=== PATIENT | female | born 1990 | race Caucasian/White ===

== ENCOUNTER 2018-12-03 09:37 | Inpatient (IN) ==
[2018-12-03] MEDS ORDERED: Naloxone 0.4 MG/ML INJ IVP PRN (09:47)
[2018-12-03] MEDS ORDERED: Lidocaine 1% 20 ML MDV ID PRN (09:47)
[2018-12-03] MEDS ORDERED: *HR* Nalbuphine 10 MG/ML AMPUL IVP PRN (09:47)
[2018-12-03] MEDS ORDERED: Metoclopramide 10 MG/2 ML VIAL IVP PRN (09:47)
[2018-12-03] MEDS ORDERED: Famotidine 20 MG/2 ML VIAL IVP PRN (09:47)
[2018-12-03] MEDS ORDERED: Ringers Solution, Lactated 1,000 ML ONE (09:49)
[2018-12-03] MEDS ORDERED: Oxytocin 20 units/ LR 1000 mL 20 UNIT/1,000 ML BAG IVC ONE (09:59)
[2018-12-03] MEDS ORDERED: Ringers Solution, Lactated 1,000 ML IVC SCH (10:00)
[2018-12-03 10:16] LABS: Basophils % 0.2 %; Eosinophils # 0.3 K/mcL (0.0-0.6); Eosinophils % 2.6 %; Hematocrit 37.1 % (35.3-44.9); Hemoglobin 11.9 g/dL (11.5-15.4); Immature Granulocytes % 0.8 % (0-4); Lymphocytes # 2.8 K/mcL (0.6-4.6); Lymphocytes % 22.5 %; Mean Corpuscular HGB Conc 32.1 g/dL (31.6-35.5); Mean Corpuscular Hemoglobin 26.4 pg (28.0-33.3); Mean Corpuscular Volume 82.3 fL (83.0-100.0); Mean Platelet Volume 9.7 fL (9.4-12.4); Monocytes # 0.8 K/mcL (0.0-1.3); Monocytes % 6.1 %; Neutrophils # 8.5 K/mcL (1.6-8.9); Platelet Count 307 K/mcL (140-400); Red Blood Count 4.51 M/mcL (3.82-4.97); Red Cell Distribution Width 14.7 % (11.5-14.5); Segmented Neutrophils % 67.8 %; White Blood Count 12.6 K/mcL (4.3-11.1)
--- NOTE | 2018-12-03 10:32 | OB/GYN Procedure Note ---
Delivery - Delivery Date: 12/03/18 Provider: Cameron Mason Intrapartum events: none Delivery induction: none Anesthesia: intravenous Quantitated Blood Loss: 300 - Infant (s) A Infant Delivery Date: 12/03/18 Presentation: vertex Position: [place] Route of delivery: Gender: Female Viability: Nonviable Specimens collected: cord blood Placenta: spontaneous - Repair Episiotomy: none Laceration Description: None - Complications Delivery complications: none - Disposition Mom disposition: stable in LDR - Comments Comments: Patient presented to labor and delivery ruptured and complete. Patient had a rapid spontaneous vaginal delivery of an anencephalic infant. Infant did not breathe at all upon delivery. There is a very slow heartbeat. Patient does not wish anything performed on the infant. Discomfort measures. Patient was able to deliver the infant's head. The rest of the was then delivered without difficulty once patient was able to control her pushing. The cord was clamped and cut the infant's head was covered with a And infant was passed immediately to mother who wished baby on her chest. Cord blood was obtained. The placenta was delivered spontaneously and intact. There were no cervical, vaginal, periurethral or perineal lacerations noted. Patient delivered a female . Weight 6 and Apgars pending. Estimated blood loss is 300 mL.
--- NOTE | 2018-12-03 12:59 | OB/GYN History & Physical ---
Date of Encounter: 12/03/18 Time of Encounter: 10:00 Assessment and Plan (1) 37 weeks gestation of Current visit: Yes Status: Acute (2) Anencephaly of fetus affecting buckner Current visit: Yes Status: Acute History of Present Illness Chief complaint: water broke HPI: Ms. Davis is a 28 year old female presented to labor and delivery at 37 weeks gestation with spontaneous rupture of membranes. Patient has a history of a fetus with anencephaly. She also has known polyhydramnios. On presentation she was checked by nursing and found to be complete with bulging bag. She is doing well. She is having no other complaints. She was given a dose of Nubain. This patient progressed rapidly and had a vaginal delivery. She is having no other complaints today. She has no drug allergies. She is currently on vitamins. She has no chronic medical conditions. Surgical history is significant for wisdom teeth extraction. Socially she denies tobacco, alcohol, illicit drug use. Obstetric history significant for 2 term vaginal deliveries uncomplicated. She is had one miscarriage. Family history is significant for diabetes and hypertension. Past Med Surg Social Fam HX - Past Medical History Medical history: no medical history - Past Surgical History Additional surgical history: wisdom teeth - Social History Smoking Status: Never smoker Smokeless Tobacco Status: No Alcohol use: none Drug use: none - Family History Father Living Status: Still Living Hx Family Endocrine Disorder: Yes (type II dm) Obstetrical History - Pregnancies : 4 Para: 2 Term: 2 Ab's: 2 Livin Medications and Allergies FLUoxetine HCl [Prozac] 40 mg PO DAILY 12/03/18 [History] Pnv95/Ferrous Fumarate/FA [ Vitamin Tablet] 1 tab PO DAILY 12/03/18 [History] Allergy/AdvReac Type Severity Reaction Status Date / Time No Known Allergies Allergy Verified 12/03/18 09:48 Review of System OB All systems PM: reviewed and no additional remarkable complaints except as stated Exam - Constitutional Constitutional: well developed, well nourished, average body habitus, mild distress - HEENT HEENT: EOMI, PERRL, Normocephaly - Neck Neck exam: full ROM - Lungs Respiratory exam: CTAB - Cardiovascular Cardiovascular exam: RRR - Abdomen Abdomen: Present: bowel sounds normal, gravid, non tender - Extremities Extremities exam: full ROM, normal inspection - Cervix Dilation: 10 Effacement: 100 Station: +1 - Uterus Uterus exam: Present: enlarged Results Result Diagrams: 12/03/18 09:50 Abnormal lab results WBC 12.6 K/mcL (4.3-11.1) H 12/03/18 09:50 MCV 82.3 fL (83.0-100.0) L 12/03/18 09:50 MCH 26.4 pg (28.0-33.3) L 12/03/18 09:50 RDW 14.7 % (11.5-14.5) H 12/03/18 09:50 All other labs normal. - VTE Reasons for not Prescribing Prophylaxis: Treatment not Indicated - Low risk for VTE
[2018-12-03] MEDS ORDERED: Rho Immune Globulin 1,500 UNIT SYRINGE IM PRN (13:06)
[2018-12-03] MEDS ORDERED: Measles/Mumps/Rubella Vacc 0.5 ML VIAL SQ PRN (13:06)
[2018-12-03] MEDS ORDERED: Oxytocin 20 units/ LR 1000 mL 20 UNIT/1,000 ML BAG IVC SCH (13:06)
[2018-12-03] MEDS: Acetaminophen 325 MG TABLET PO PRN (21:17)
--- NOTE | 2018-12-04 07:10 | Discharge Summary ---
Date of Encounter: 12/04/18 Time of Encounter: 07:08 - Discharge Diagnosis (1) Vaginal delivery Priority: Primary Status: Acute Comments: Continue routine care discharge home today follow up with Dr. Chavez in 4-6 weeks (2) Anencephaly of fetus affecting buckner Priority: Secondary Status: Acute - Discharge Medications Prescriptions: Continued FLUoxetine HCl [Prozac] 40 mg PO DAILY Discontinued Pnv95/Ferrous Fumarate/FA [ Vitamin Tablet] 1 tab PO DAILY Home Medications: FLUoxetine HCl [Prozac] 40 mg PO DAILY 12/03/18 [History] Allergies/Adverse Reactions: Allergy/AdvReac Type Severity Reaction Status Date / Time No Known Allergies Allergy Verified 12/03/18 09:48 Data Procedures and tests throughout hospitalization: Laboratory Tests 12/03/18 12/03/18 09:50 14:00 WBC 12.6 H RBC 4.51 Hgb 11.9 Hct 37.1 MCV 82.3 L MCH 26.4 L MCHC 32.1 RDW 14.7 H Plt Count 307 MPV 9.7 Immature Gran % 0.8 Seg Neutrophils % 67.8 Lymphocytes % 22.5 Monocytes % 6.1 Eosinophils % 2.6 Basophils % 0.2 Neutrophils # 8.5 Lymphocytes # 2.8 Monocytes # 0.8 Eosinophils # 0.3 Basophils # 0.0 Baby's Blood Type O RH POSITIVE Mother's Blood Type O RH NEGATIVE Rhogam Indicated YES Labs on day of discharge: Labs from last 24 hours 12/03/18 12/03/18 14:00 09:50 WBC 12.6 H RBC 4.51 Hgb 11.9 Hct 37.1 MCV 82.3 L MCH 26.4 L MCHC 32.1 RDW 14.7 H Plt Count 307 MPV 9.7 Immature Gran % 0.8 Seg Neutrophils % 67.8 Lymphocytes % 22.5 Monocytes % 6.1 Eosinophils % 2.6 Basophils % 0.2 Neutrophils # 8.5 Lymphocytes # 2.8 Monocytes # 0.8 Eosinophils # 0.3 Basophils # 0.0 Screen Pending Baby's Blood Type O RH POSITIVE Mother's Blood Type O RH NEGATIVE Rhogam Indicated YES Rhogam Req for Mother Pending Date of admission: 12/03/18 09:37 Primary care physician: Judd Trent DO Consults: 12/03/18 13:06 Consult to Business Economist [CONS] Routine Comment: Vaginal delivery, consult needed Discharging clinician: Mona Maria Anticipated date of discharge: 12/04/18 - Patient Status Disposition: Home, Self-Care Condition: Good Functional capacity at discharge: independent ambulation - Discharge Instructions Follow Up With: Judd Trent DO [Primary Care Provider] - Tere Chavez MD [Partnered Physician] - - Diet and Activity Activity: increase activity as tolerated Diet: regular diet Hospital Course Reason for admission: active labor, rupture of membranes Delivery: Episiotomy: none Laceration: none Other procedures: none complications: none Discharge diagnosis: IUP at term delivered (anencephalic infant ) [place] baby: female ( 40 min after delivery) Time Attestation: Total time spent providing and/or coordinating discharge services: Time Spent: Less than 30 minutes Exam - Constitutional Vitals: Temp Pulse Resp BP Pulse Ox 97.8 F 79 16 115/70 99 12/04/18 05:05 12/04/18 05:05 12/04/18 05:05 12/04/18 05:05 12/04/18 05:05 General appearance IM: A&O X 3, pleasant, answers questions appropriately - Respiratory Respiratory exam: Present: CTAB - Cardiovascular Cardiovascular exam IM: Present: RRR, +S1, +S2 - GI/Abdominal GI/Abdominal exam IM: normal bowel sounds - Uterine Tone: Firm Uterus Position: At Umbilicus, Midline - Extremities Exam Extremities exam IM: Present: full ROM, normal capillary refill, normal inspection - Neurological Exam Neurological exam: alert, oriented X3, reflexes normal
[2018-12-04 07:30] LABS: Hematocrit 37.3 % (35.3-44.9); Hemoglobin 11.5 g/dL (11.5-15.4); Mean Corpuscular HGB Conc 30.8 g/dL (31.6-35.5); Mean Corpuscular Hemoglobin 25.6 pg (28.0-33.3); Mean Corpuscular Volume 83.1 fL (83.0-100.0); Platelet Count 272 K/mcL (140-400); Red Blood Count 4.49 M/mcL (3.82-4.97); Red Cell Distribution Width 14.8 % (11.5-14.5); Segmented Neutrophils % 64.7 %; White Blood Count 10.6 K/mcL (4.3-11.1)
[2018-12-04 07:31] LABS: Basophils % 0.3 %; Eosinophils # 0.2 K/mcL (0.0-0.6); Eosinophils % 1.7 %; Immature Granulocytes % 0.7 % (0-4); Lymphocytes # 2.6 K/mcL (0.6-4.6); Lymphocytes % 24.7 %; Monocytes # 0.8 K/mcL (0.0-1.3); Monocytes % 7.9 %; Neutrophils # 6.9 K/mcL (1.6-8.9)
[2018-12-04 07:57] VITALS: BP 106/62
[2018-12-04] MEDS ORDERED: Prenatal Vit/FA 1 EACH TABLET PO SCH (09:00)
[2018-12-04] MEDS ORDERED: FLUoxetine 20 MG CAPSULE PO SCH (09:00)
[2018-12-04] MEDS: Acetaminophen 325 MG TABLET PO PRN (09:37)
== END 2018-12-04 11:48 | disposition home or self-care (01) | DRG 560 ==
LOC: 1NENULAB 09:37 → 1NENUOBS 13:12
PROVIDERS: ADMIT Obstetrics & Gynecology; ATTEND Obstetrics & Gynecology

== ENCOUNTER 2020-10-15 19:54 | Inpatient (IN) ==
[~2020-10-15 19:54] MED LIST: EPHEDrine 50 MG/ML VIAL IVP PRN; Epidural Premix (fent/bupiv) 110 ML EP SCH; Famotidine 20 MG/2 ML VIAL IVP PRN; Methylergonovine 0.2 MG/ML AMPUL IM ONE; Metoclopramide 10 MG/2 ML VIAL IVP PRN; Naloxone 0.4 MG/ML INJ IVP PRN; Ondansetron 4 MG/2 ML VIAL IVP PRN; Ringers Solution, Lactated 1,000 ML IVC SCH
[2020-10-15 20:00] LABS: Basophils % 0.1 %; Eosinophils % 0.3 %; Hematocrit 29.2 % (35.3-44.9); Hemoglobin 9.4 g/dL (11.5-15.4); Immature Granulocytes % 0.5 % (0-4); Lymphocytes % 26.2 %; Mean Corpuscular HGB Conc 32.2 g/dL (31.6-35.5); Mean Corpuscular Hemoglobin 27.1 pg (28.0-33.3); Mean Corpuscular Volume 84.1 fL (83.0-100.0); Mean Platelet Volume 10.3 fL (9.4-12.4); Monocytes # 0.8 K/mcL (0.0-1.3); Monocytes % 10.3 %; Neutrophils # 4.8 K/mcL (1.6-8.9); Platelet Count 276 K/mcL (140-400); Red Blood Count 3.47 M/mcL (3.82-4.97); Red Cell Distribution Width 14.4 % (11.5-14.5); Segmented Neutrophils % 62.6 %; White Blood Count 7.6 K/mcL (4.3-11.1)
[2020-10-15 20:57] LABS: Amphetamine Screen,Urine Negative ng/mL (Cutoff=1000); Barbiturate Screen,Urine Negative ng/mL (Cutoff=200); Benzodiazepines Screen,Urine Negative ng/mL (Cutoff=200); Cannabinoid Screen,Urine Negative ng/mL (Cutoff = 50); Cocaine Screen,Urine Negative ng/mL (Cutoff= 300); Opiate Screen,Urine Negative ng/mL (Cutoff=300); Phencyclidine Screen,Urine Negative ng/mL (Cutoff=25)
[2020-10-15] MEDS ORDERED: Oxytocin 20 units/ LR 1000 mL 20 UNIT/1,000 ML BAG IVC ONE (23:09)
[2020-10-16] MEDS ORDERED: Rho Immune Globulin 1,500 UNIT SYRINGE IM PRN (00:58)
[2020-10-16] MEDS ORDERED: Benzocaine/Menthol 56 GM AEROSOL SPRAY TP PRN (00:58)
[2020-10-16] MEDS ORDERED: Oxytocin 20 units/ LR 1000 mL 20 UNIT/1,000 ML BAG IVC SCH (00:58)
[2020-10-16] MEDS ORDERED: Lanolin 7 G OINT...G. TP PRN (00:58)
[2020-10-16] MEDS ORDERED: Acetaminophen 325 MG TABLET PO PRN (00:58)
[2020-10-16] MEDS ORDERED: *HR* HYDROcodone/Acet 5/325 mg TABLET PO PRN (00:58)
[2020-10-16] MEDS: Ibuprofen 600 MG TABLET PO PRN ×2 (08:00→14:23)
[2020-10-16] MEDS: Prenatal Vit/FA 1 EACH TABLET PO SCH (08:00)
[2020-10-17 07:51] VITALS: BP 129/86
[2020-10-17] MEDS: Prenatal Vit/FA 1 EACH TABLET PO SCH (09:45)
[2020-10-17] MEDS: Ibuprofen 600 MG TABLET PO PRN (09:45)
[2020-10-17 10:14] LABS: Basophils % 0.4 %; Eosinophils # 0.1 K/mcL (0.0-0.6); Eosinophils % 1.5 %; Hematocrit 30.2 % (35.3-44.9); Hemoglobin 9.1 g/dL (11.5-15.4); Immature Granulocytes % 0.9 % (0-4); Lymphocytes # 1.7 K/mcL (0.6-4.6); Lymphocytes % 22.8 %; Mean Corpuscular HGB Conc 30.1 g/dL (31.6-35.5); Mean Corpuscular Hemoglobin 26.3 pg (28.0-33.3); Mean Corpuscular Volume 87.3 fL (83.0-100.0); Mean Platelet Volume 10.6 fL (9.4-12.4); Monocytes # 0.7 K/mcL (0.0-1.3); Monocytes % 9.3 %; Neutrophils # 4.8 K/mcL (1.6-8.9); Platelet Count 271 K/mcL (140-400); Red Blood Count 3.46 M/mcL (3.82-4.97); Red Cell Distribution Width 14.3 % (11.5-14.5); Segmented Neutrophils % 65.1 %; White Blood Count 7.4 K/mcL (4.3-11.1)
[2020-10-17] MEDS ORDERED: FLUoxetine 20 MG CAPSULE PO SCH (11:13)
[2020-10-17] MEDS ORDERED: BuPROPion SR (12 HR) 150 MG TABLET PO SCH (11:15)
[2020-10-17] MEDS ORDERED: BuPROPion XL (24 HR) 150 MG TABLET PO SCH (12:00)
== END 2020-10-17 12:27 | disposition home or self-care (01) | DRG 542 ==
LOC: 1NENULAB → 1NENUOBS 10-16 02:37
PROVIDERS: ADMIT Advanced Practice Midwife; ATTEND Advanced Practice Midwife